=== PATIENT | female | born 1990 | race African-American/Black ===

== ENCOUNTER 2023-07-15 09:47 | Emergency (ER) | payer BC, MEDICAID ==
[~2023-07-15] VITALS: Ht 172.7 cm; Wt 121.0 kg
[2023-07-15 10:04] VITALS: BP 204/114; PULSE 79; RESP 18; TEMP 98.5; O2SAT 100
[2023-07-15] MEDS ORDERED: CLONIDINE 0.2MG TABLET PO ONE (10:30)
== END 2023-07-15 11:07 | disposition home or self-care (01) ==
LOC: ER 09:47
DX: I10 Essential (primary) hypertension (principal)
CPT/HCPCS: 99281